=== PATIENT | female | born 1945 | race Caucasian/White ===

== ENCOUNTER → 2020-05-12 | Outpatient (CLI) | payer MEDICARE, BC ==
[2014-11-16 16:10] VITALS: BP 154/67
[~2020-05-12] MED LIST: CIPR500T94 PO; IOHEXOL 350 MG/ML 100 ML VIAL. IV ONE; METR-34 PO
--- NOTE | 2020-05-12 11:50 | RAD ---
EXAM: CHEST PA LATERAL INDICATION: Reason: ELEVATED D-DIMER, PRE VQ SCN / Spl. Instructions: / History: . TECHNIQUE: PA and lateral views COMPARISON: None FINDINGS: The heart size is normal. The great vessels appear unremarkable. There is no hilar or mediastinal mass. The lungs are clear. There is no pleural effusion or pneumothorax. There are no significant osseous abnormalities. Multiple level osteophytes in the thoracic spine are present. IMPRESSION: No active cardiopulmonary disease. Electronically signed by: Hailey Kerr MD (05/12/2020 11:47 AM) [id number]
--- NOTE | 2020-05-12 12:57 | RAD ---
PULMONARY PERFUSION IMG PARTIC History:Reason: / Spl. Instructions: / History: Comparison: Chest x-ray May 12, 2020 Findings: Perfusion examination was performed. Ventilation imaging not performed due to Covid protocol. Perfusion images were acquired after the patient was injected with 5.5 mCi of technetium 99m MAA. No mismatched perfusion defect is identified. Impression: 1. Very low probability for pulmonary embolic disease. Electronically signed by: Tereso Yi DO (05/12/2020 12:55 PM) [id number]
== END | disposition home or self-care (01) ==
LOC: CT 08:52
PROVIDERS: ATTEND Family Medicine
DX: J98.4 Other disorders of lung (principal); I82.491 Acute embolism and thrombosis of other specified deep vein of right lower extremity; I10 Essential (primary) hypertension; R22.41 Localized swelling, mass and lump, right lower limb; Z88.8 Allergy status to other drugs, medicaments and biological substances; Z79.01 Long term (current) use of anticoagulants
CPT/HCPCS: 71046; 78580; A9540; 96374